=== PATIENT | male | born 1940 | race Caucasian/White ===

== ENCOUNTER → 2016-08-04 | Outpatient (CLI) | payer OTHER | LOC: KOH-I 09:35 → US 11:00 | DX: D30.00 Benign neoplasm of unspecified kidney (principal); N28.89 Other specified disorders of kidney and ureter | CPT/HCPCS: 76775 ==

== ENCOUNTER 2020-06-08 12:45 | Emergency (ER) | payer MEDICARE, OTHER ==
[~2020-06-08 12:45] MED LIST: 24HR ALLERGY REL5 MG PO; ABILIFY 5 MG TAB5 MG PO; ARICEPT10 MG PO; ASPIRIN EC81 MG PO; ATIVAN0.5 MG PO; BETAPACE80 MG PO; CRESTOR 10 MG T10 MG PO; CRESTOR10 MG PO; CYMBALTA60 MG PO; DURAGESIC1 EAC4 TD; ELIQUIS5 MG PO; FISH OIL 1,4001 EACH PO; GLUCOPHAGE500 MG PO; IPRAT-ALBUT 0.5-3 ML INH; MEGACE TAB 40 M40 MG PO; METAMUCIL PLUS1 EACH PO; MIRALAX17 GM PO; NORCO 5-325 TA1 EACH PO; OMNICEF 300 MG300 MG PO; ONE DAILY MULT1 EAC1 PO; PULMICORT0.5 MG/21 INH; SEROQUEL TAB 2525 MG PO; SINGULAIR10 MG PO; SOTALOL80 MG PO; SPIRIVA HANDIH18 MCG INH; SYMBICORT 16010.2 GM INH; SYNTHROID 25 M25 MCG PO; SYNTHROID50 MCG PO; TOUJEO MAX300 UNIT/1 SQ; VENTOLIN HFA 66.7 GM INH; VITAMIN D250000 UNIT PO; ZOFRAN4 MG PO; ZOLOFT100 MG PO; ZOLOFT50 MG PO
[2020-06-08 14:08] LABS: HEMOGLOBIN 14.7 gm/dl (14.0-17.5); RED BLOOD COUNT 5.33 M/UL (4.20-5.50); WHITE BLOOD COUNT 8.1 K/UL (4.5-11.0)
[2020-06-08 14:49] LABS: BUN/CREATININE RATIO 20 (0-10)
[2020-06-08] MEDS ORDERED: DECADRON6 MG PO (16:12)
[2020-06-08] MEDS ORDERED: ECOTRIN81 MG PO (16:13)
== END 2020-06-08 19:45 | disposition home or self-care (01) ==
LOC: ER1 12:45
PROVIDERS: Family Medicine
DX: U07.1 COVID-19 (principal); E11.9 Type 2 diabetes mellitus without complications; I48.91 Unspecified atrial fibrillation; Z85.46 Personal history of malignant neoplasm of prostate
CPT/HCPCS: 71045; 73030; 73502; 80053; 82550; 82553; 83605; 84484; 85025; 87040; 87635; 93005; 99284

== ENCOUNTER 2020-06-12 18:23 | Emergency (ER) | payer MEDICARE, OTHER ==
[~2020-06-12] VITALS: Ht 182.9 cm; Wt 72.6 kg
[~2020-06-12 18:23] MED LIST changes: +DECADRON6 MG PO; +ECOTRIN81 MG PO
[2020-06-12 19:40] LABS: HEMOGLOBIN 15.9 gm/dl (14.0-17.5); RED BLOOD COUNT 5.63 M/UL (4.20-5.50); WHITE BLOOD COUNT 14.4 K/UL (4.5-11.0)
[2020-06-12 19:58] LABS: BUN/CREATININE RATIO 22 (0-10)
== END 2020-06-13 04:00 | disposition short-term general hospital (02) ==
LOC: ER1 18:23
DX: I48.91 Unspecified atrial fibrillation (principal); I63.9 Cerebral infarction, unspecified; J44.9 Chronic obstructive pulmonary disease, unspecified; F17.200 Nicotine dependence, unspecified, uncomplicated
CPT/HCPCS: 36600; 70450; 71045; 80053; 82803; 84484; 85025; 85610; 85730; 93005; 96365; 96366; 96372; 96375; 99285; J1100; J1200; J1630; J1644; J7030